=== PATIENT | female | born 1960 | race Caucasian/White ===

== ENCOUNTER 2018-10-28 08:55 | Observation (INO) | payer MEDICARE, OTHER ==
[~2018-10-28 08:55] MED LIST: DEXAMETHASONE SODIUM PHOSPHATE 10 MG/ML VIAL ONE; ENOXAPARIN SODIUM 40 MG/0.4 ML DISP.SYRIN SQ ONE; FAMOTIDINE 20 MG/2 ML VIAL ONE; FENTANYL CITRATE/PF 250 MCG/5 ML INJ. ONE; KETOROLAC TROMETHAMINE 30 MG/1ML VIAL ONE; LACTATED RINGERS 1,000 ML IV.SOLN IV ONE; LIDOCAINE HCL 2% PF 100MG/5ML VIAL IJ ONE; MIDAZOLAM HCL 2 MG/2 ML VIAL ONE; ONDANSETRON HCL/PF 4 MG/ 2ML VIAL ONE; PROPOFOL 200 MG/20 ML VIAL IV ONE; ROCURONIUM BROMIDE 10 MG/ML 5ML VIAL ONE; SCOPOLAMINE HYDROBROMIDE 1.5MG/72HR PATCH TD ONE; SEVOFLURANE 250 ML LIQUID IH ONE; ceFAZolin SODIUM 1 GM VIAL ONE
[2018-10-28] MEDS ORDERED: SCOPOLAMINE HYDROBROMIDE 1.5MG/72HR PATCH TD ONE (09:20)
[2018-10-28] MEDS ORDERED: PREGNANCY TEST KIT 1 EACH KIT MC ONE (10:04)
[2018-10-28] MEDS ORDERED: ONDANSETRON HCL/PF 4 MG/ 2ML VIAL IVP PRN (15:29)
[2018-10-28] MEDS ORDERED: OXYCODONE HCL 5 MG/5 ML SOLN UD CUP PO PRN (15:29)
[2018-10-28] MEDS ORDERED: MORPHINE SULFATE 4 MG/ML VIAL IVP PRN (15:29)
[2018-10-28] MEDS ORDERED: PROMETHAZINE HCL 25 MG in 0.9 % SODIUM CHLORIDE 50 ML IV PRN (15:29)
[2018-10-28] MEDS ORDERED: 0.9 % SODIUM CHLORIDE 1,000 ML IV ONE ×3 (15:46→21:49)
[2018-10-28] MEDS ORDERED: KETOROLAC TROMETHAMINE 30 MG/1ML VIAL ONE ×2 (15:46→21:49)
[2018-10-28] MEDS: KETOROLAC TROMETHAMINE 30 MG/1ML VIAL IVP PRN ×2 (15:57→21:59)
[2018-10-28] MEDS: 0.9 % SODIUM CHLORIDE 1,000 ML IV SCH (16:02)
[2018-10-28 16:33] VITALS: BMI 50.6
--- NOTE | 2018-10-28 18:11 | History and Physical Report ---
History of Present Illnes - History of Present Illness Reason for Visit: S/P Gastric Sleeve History of Present Illness: Patient is a 58-year-old female who has tried multiple diets and exercise programs with no success. She has always struggled with her weight. She has a h/o anorexia and bulemia. Patient and surgeon decided to proceed with gastric sleeve procedure. Procedure went well- patient will be admitted and monitored s/p surgical intervention. Patient has been on a liquid diet prior to surgery so she is a risk of dehydration s/p surgery. She will be admitted for IV hydration to help hydrate patient until she is able to tolerate a sufficient oral intake, will treat pain with IV medication until patient is able to tolerate oral meds, IV antiemetics to help reduce episodes of nausea and/or vomiting. Patient will be monitored closely with blood pressures ranging 170/75. Pain medication will be given and see if this is cause of HTN. - Past Medical History Cardiac: HTN, Other (EF 65% 07/20/18) Gastrointestinal: GERD, Other (Hx. of anorexia and bulemia) Heme/Onc: Other (fatty liver) Psych: Anxiety, Depression Musculoskeletal: Chronic low back pain, Osteoarthritis Rheumatologic: Other (Lupus) Endocrine: obesity Grav: 6 Para: 3 Ab: 3 - Past Surgical History Past Surgical History: Cholecystectomy, , Other (lumbar repair, Carpal tunnel release, right wrist, right foot), Tubal Ligation - Past Family History Mother Family History: Hypertension Father Family History: Hyperlipidemia - Past Social History Smoke: No Alcohol: Heavy (quit in September d/t fatty liver) Drugs: None Lives: With Family Domestic Violence: Negative - Health Maintenance Health Maintenance: Tetanus. denies: Influenza Vaccine Influenza Vaccine: Patient Refused Pneumonia Vaccine: No Resuscitation Status: Resusciation Status Resuscitation Status Full Code - Unable to Obtain History Unable to Obtain: No Review of Systems - Review of Systems Constitutional: Weakness. negative: Fever, Chills Eyes: negative: pain, eyelid inflammation ENT: Throat Pain (throat a little sore). negative: Ear Pain Respiratory: negative: Cough, Shortness of Breath Cardiovascular: negative: Chest Pain, Light Headedness Gastrointestinal: Nausea, Abdominal Pain (s/p gastric sleeve). negative: Vomiting Genitourinary: negative: Dysuria Musculoskeletal: negative: Back Pain Skin: Other (Incision site x 5). negative: Rash Neurological: negative: Weakness - Medications/Allergies Allergies/Adverse Reactions: Allergies Allergy/AdvReac Type Severity Reaction Status Date / Time Sulfa (Sulfonamide Allergy Verified 10/28/18 15:29 Antibiotics) Home Medications: Home Medications Benazepril HCl 20 mg PO DAILY 10/28/18 Cyclobenzaprine HCl 10 mg PO Q8H PRN 10/28/18 HYDROcodone /APAP 10/325 [[place] 10/325] 1 each PO Q8H PRN 10/28/18 Hydroxyzine Pamoate 25 mg PO DAILY 10/28/18 Meloxicam 15 mg PO DAILY 10/28/18 Metoprolol Succinate 100 mg PO DAILY 10/28/18 Pantoprazole Sodium 40 mg PO DAILY 10/28/18 Triamterene/Hydrochlorothiazid [Triamterene-Hctz 37.5-25 mg Tb] 1 each PO DAILY 10/28/18 Current Inpatient Medications: Current Inpatient Medications Cefazolin Sodium/Dextrose (Ancef 1 Gm/50 Ml-Dextrose) 1 gm IV Q8H [facility] Stop: 10/29/18 05:31 Enoxaparin Sodium (Lovenox) 40 mg SQ DAILY [facility] Stop: 11/12/18 08:59 Famotidine (Pepcid) 20 mg IVP BID [facility] Stop: 11/01/18 20:59 Sodium Chloride (Normal Saline) 1,000 mls @ 150 mls/hr IV Q8H [facility] Last Admin: 10/28/18 16:02 Dose: 150 mls/hr Promethazine HCl 25 mg/ Sodium (Chloride) 51 mls @ 200 mls/hr IV Q6 PRN PRN Reason: Nausea / Vomiting Stop: 11/01/18 15:28 Ketorolac Tromethamine (Toradol) 30 mg IVP Q6 PRN PRN Reason: For Mild Pain Stop: 11/01/18 15:28 Last Admin: 10/28/18 15:57 Dose: 30 mg Miscellaneous (Benazepril Hcl [Benazepril Hcl]) 20 mg PO DAILY [facility] Miscellaneous (Meloxicam [Meloxicam]) 15 mg PO DAILY [facility] Miscellaneous (Metoprolol Succinate [Metoprolol Succinate]) 100 mg PO DAILY [facility] Morphine Sulfate (Morphine Sulfate) 2 mg IVP Q2 PRN PRN Reason: MODERATE PAIN Stop: 10/29/18 15:28 Ondansetron HCl (Zofran) 4 mg IVP Q6H PRN PRN Reason: Nausea / Vomiting Stop: 11/01/18 15:28 Oxycodone HCl (Roxicodone) 5 mg PO Q4H PRN PRN Reason: PAIN Triamterene/HCTZ (Dyazide 37.5/25) 1 each PO DAILY [facility] Exam - Exam Vital Signs: Vital Signs (72 hours) 10/28/18 10/28/18 10/28/18 15:29 15:44 16:07 Temperature 97.4 F L 98.2 F Pulse Rate 65 Pulse Rate [ Apical] Pulse Rate [ 74 63 Right] Respiratory 20 20 Rate Blood Pressure 171/75 158/94 [Right Arm] O2 Sat by Pulse 96 96 96 Oximetry 10/28/18 18:00 Temperature 97.1 F L Pulse Rate Pulse Rate [ 68 Apical] Pulse Rate [ Right] Respiratory 20 Rate Blood Pressure 145/71 [Right Arm] O2 Sat by Pulse 92 Oximetry General: Alert, Oriented to Person, Oriented to Place, Oriented to Time, Cooperative, Mild distress, Morbidly Obese HEENT: Atraumatic, PERRLA, Mouth Mucous membr. moist/[place], Nose Mucous membr. moist/[place] Neck: Normal Range of Motion Carotids: No bruit Lungs: Clear to auscultation, Normal air movement, Speaks full Sentences Cardiovascular: Regular rate, Normal S1, Normal S2 Peripheral Edema: None Peripheral Pulses: 2+ Abdomen: Soft, Decreased Bowel Sounds Integumentary: Normal, [place], Warm, Dry, Other (Incision drsgs dry & intact x 5) Extremities: No edema, Normal pulses, No tenderness/swelling Neurological: Normal gait, Normal speech, Strength Equal Bilat, Sensation intact Psych/Mental Status: Mental status NL, Mood NL, Appropriate Affect, Intact Judgment Assessment/Plan - Assessment/Plan (1) Status post gastric surgery Status: Acute Current Visit: Yes Plan: Plan to admit for IV hydration, IV pain meds, and IV antiemetics. Lovenox to help prevent DVTs and SCD's, IS and frequent ambulation will be implemented. Start ice chips and advance diet as tolerated. (2) Morbid obesity due to excess calories Status: Acute Current Visit: Yes Plan: Patient is s/p gastric sleeve. We will assist patient with implementing gastric sleeve diet protocol starting with ice chips and clear liquids and advancing as tolerated. (3) Hypertension Status: Acute Current Visit: Yes Qualifiers: Hypertension type: essential hypertension Qualified Code(s): I10 - Essential (primary) hypertension Plan: Since patient blood pressure remains elevated we will continue with blood pressure medication and monitor blood pressure every 4 hours and as needed. We will keep her on telemetry as well and monitor cardiac rhythm and rate (4) GERD (gastroesophageal reflux disease) Status: Acute Current Visit: Yes Qualifiers: Esophagitis presence: without esophagitis Qualified Code(s): K21.9 - Gastro-esophageal reflux disease without esophagitis Plan: We will implement Pecid IV BID to help with GERD while patient is hospitalized to decrease acid reflux and until patient can tolerate oral medications (5) Anxiety and depression Status: Acute Current Visit: Yes Plan: Will plan to have nursing get patient up and walking out of the room- will offer activities such as tV, book, radio to occupy her (6) Chronic low back pain Status: Acute Current Visit: Yes Qualifiers: Back pain laterality: unspecified Sciatica laterality: sciatica laterality unspecified Plan: Will have patient up and ambulating- educate that laying in bed can exacerbate back pain- may offer K-Pad if needed VTE Assessment - RISK FACTOR SCORE VTE RISK FACTOR SCORES: AGE 40-60 YEARS, OBESITY, MAJOR SURGERY/ANESTHESIA TIME > 1 HOUR - RISK VTE HIGH RISK: SCORE OF 3-4 (RISK PROXIMAL DVT 4-8%) PROPHYLAXIS NEEDED (Lovenox daily, SCDs in bed, frequent ambulation)
[2018-10-28] MEDS ORDERED: CEFAZOLIN SODIUM/DEXTROSE,ISO 50 ML IV ONE (21:49)
[2018-10-28] MEDS ORDERED: PROMETHAZINE HCL 25 MG/ML VIAL ONE (21:49)
[2018-10-28] MEDS ORDERED: 0.9 % SODIUM CHLORIDE 50 ML IV ONE (21:50)
[2018-10-28] MEDS ORDERED: FAMOTIDINE 20 MG/2 ML VIAL ONE (21:51)
[2018-10-28] MEDS: FAMOTIDINE 20 MG/2 ML VIAL IVP SCH (21:59)
[2018-10-28] MEDS: CEFAZOLIN SODIUM/DEXTROSE,ISO 1 GM/50 ML PIGGYBACK IV SCH (22:00)
[2018-10-29] MEDS ORDERED: CEFAZOLIN SODIUM/DEXTROSE,ISO 50 ML IV ONE (04:14)
[2018-10-29] MEDS: CEFAZOLIN SODIUM/DEXTROSE,ISO 1 GM/50 ML PIGGYBACK IV SCH (04:33)
[2018-10-29] MEDS ORDERED: KETOROLAC TROMETHAMINE 30 MG/1ML VIAL ONE (06:42)
[2018-10-29] MEDS: KETOROLAC TROMETHAMINE 30 MG/1ML VIAL IVP PRN (06:42)
[2018-10-29 08:02] VITALS: BP 147/71
--- NOTE | 2018-10-29 08:27 | Discharge Summary ---
Discharge Summary - Discharge Sumary History of Present Illness: Patient is a 58-year-old female who has tried multiple diets and exercise programs with no success. She has always struggled with her weight. She has a h/o anorexia and bulemia. Patient and surgeon decided to proceed with gastric sleeve procedure. Procedure went well- patient will be admitted and monitored s/p surgical intervention. Patient has been on a liquid diet prior to surgery so she is a risk of dehydration s/p surgery. She will be admitted for IV hydration to help hydrate patient until she is able to tolerate a sufficient oral intake, will treat pain with IV medication until patient is able to tolerate oral meds, IV antiemetics to help reduce episodes of nausea and/or vomiting. Patient will be monitored closely with blood pressures ranging 170/75. Pain medication will be given and see if this is cause of HTN. Condition at Discharge: Stable Home Medications: Ambulatory Orders Medication Instructions Recorded Benazepril HCl 20 mg PO DAILY 10/28/18 Cyclobenzaprine HCl 10 mg PO Q8H PRN 10/28/18 HYDROcodone /APAP 10/325 [[place] 1 each PO Q8H PRN 10/28/18 10/325] Hydroxyzine Pamoate 25 mg PO DAILY 10/28/18 Meloxicam 15 mg PO DAILY 10/28/18 Metoprolol Succinate 100 mg PO DAILY 10/28/18 Pantoprazole Sodium 40 mg PO DAILY 10/28/18 Triamterene/Hydrochlorothiazid 1 each PO DAILY 10/28/18 [Triamterene-Hctz 37.5-25 mg Tb] Consultations this Visit: None Procedures this Visit: Other (S/P gastric sleeve) Allergies/Adverse Reactions: Allergies Allergy/AdvReac Type Severity Reaction Status Date / Time Sulfa (Sulfonamide Allergy Verified 10/28/18 15:29 Antibiotics) Discharge Summary: Patient is a 58-year-old female that underwent the gastric sleeve procedure and has done well. She has been very cooperative with her care by ambulating frequently, using her incentive spirometer, and wearing her SCDs while in bed. She has been compliant with her diet during hospitalization. She is having minimal discomfort at this time and minimal nausea- she has is passing gas and belching. She is aware of discharge instructions and what she can and cannot do post surgical- she is aware of the strict diet she must follow to decrease discomfort and have success after procedure. She has family support and daughter will be taking her home- medications written by surgeon given to patient. She feels ready to go home. Hospital Course: Patient received pain medications, antiemetics, and IVF and was transitioned to oral. She has been up ambulating and using incentive spirometer. - Final Diagnosis (1) Status post gastric surgery Problems: Incision without redness or drainage, positive bowel sounds, minimal discomfort, belching and flatus, no extremity pain or edema Right or Left: Right (2) Morbid obesity due to excess calories Problems: Patient is following strict gastric sleeve diet Right or Left: Right (3) Hypertension Problems: Will keep patient on blood pressure medications- BP running in the 140s. Right or Left: Right (4) GERD (gastroesophageal reflux disease) Problems: Stable on home meds Right or Left: Right (5) Anxiety and depression Problems: Stable on home meds Right or Left: Right (6) Chronic low back pain Problems: Stable on home meds Right or Left: Right
[2018-10-29] MEDS ORDERED: ENOXAPARIN SODIUM 40 MG/0.4 ML DISP.SYRIN SQ SCH (09:00)
[2018-10-29] MEDS ORDERED: TRIAMTERENE/HCTZ 37.5/25MG TAB PO SCH (09:00)
[2018-10-29] MEDS ORDERED: METOPROLOL SUCCINATE 100 MG PO SCH (09:00)
[2018-10-29] MEDS ORDERED: Non-Formulary 1 EACH (Meloxicam [Meloxicam] 15 MG) PO SCH (09:00)
[2018-10-29] MEDS ORDERED: BENAZEPRIL HCL 20 MG PO SCH (09:00)
[2018-10-29] MEDS ORDERED: TRIAMTERENE/HCTZ 37.5/25MG TAB PO ONE (10:03)
[2018-10-29] MEDS ORDERED: ENOXAPARIN SODIUM 40 MG/0.4 ML DISP.SYRIN SQ ONE (10:03)
[2018-10-29] MEDS ORDERED: METOPROLOL SUCCINATE 50 MG TAB.ER.24H PO ONE (10:04)
[2018-10-29] MEDS ORDERED: FAMOTIDINE 20 MG/2 ML VIAL ONE (10:04)
[2018-10-29] MEDS: FAMOTIDINE 20 MG/2 ML VIAL IVP SCH (10:28)
[2018-10-29] MEDS ORDERED: OXYCODONE HCL 5 MG/5 ML SOLN UD CUP PO ONE (11:48)
[2018-10-29] MEDS: 0.9 % SODIUM CHLORIDE 1,000 ML IV SCH ×2 (11:48→12:13)
--- NOTE | 2018-10-31 09:36 | Operative Note ---
PREOPERATIVE DIAGNOSIS: 1. Morbid obesity. 2. Gastroesophageal reflux disease. 3. Hypertension. POSTOPERATIVE DIAGNOSIS: 1. Morbid obesity. 2. Gastroesophageal reflux disease. 3. Hypertension. PROCEDURES PERFORMED: 1. Laparoscopic vertical sleeve gastrectomy. 2. Upper gastrointestinal endoscopy. SURGEON: Juan Larson M.D. INDICATIONS FOR PROCEDURE: Ms. Smith is a 58-year-old female who presented with features of morbid obesity. She was noted to have a weight of 290 pounds with a BMI of 51 with the above-listed comorbidities. The patient was advised laparoscopic vertical sleeve gastrectomy and possible hiatal hernia repair. The patient showed understanding and agreed to proceed. DESCRIPTION OF PROCEDURE: After explaining to the patient in detail and informed consent was obtained, the patient was identified in the preoperative holding area. The patient was transferred to the operating room and was placed in supine position. Sequential compressive devices were placed for DVT prophylaxis. Preoperative antibiotics were given. After induction of anesthesia, the abdomen was prepped and draped in a sterile fashion. Through a left upper quadrant 1-cm incision, and using Optiview technique, the peritoneal cavity was entered and pneumoperitoneum was created. Thereafter, under direct vision, another 5-mm trocar was placed in the left midabdomen and another 15-mm trocar was placed in the right midabdomen. Through a 1-cm incision in the right subcostal region, another 5-mm trocar was placed. Through a 1-cm incision in the epigastrium, a Silvina retractor was introduced and the left lobe of the liver was retracted. On initial inspection, the patient was noted to have no evidence of hiatal hernia. I took down the gastroepiploic vessels using a LigaSure. This was continued superiorly. The short gastric vessels were taken down. The gastrophrenic ligament was divided and the Angle of His was mobilized. The posterior attachments of the stomach on the pancreas were released. Distally, the gastroepiploic vessels were taken down up to about 4 cm proximal to the pylorus. At this point, a #38 [place] Bougie was introduced into the stomach and was placed along the lesser curve. The stomach was then divided in a vertical fashion with multiple Endo JUNITO [employer]idien Black Load Staplers. The first firing was directed outwards towards the greater curvature. Subsequent firings were directed towards the Angle of His to create a loose sleeve around the #38 [place] bougie. The bougie was then removed and an upper GI endoscopy was performed at this point. The scope was introduced into the esophagus and was gradually advanced into the stomach. The GE junction appeared normal. The sleeve size appeared normal. No evidence of any active bleeding was noted. The stomach was insufflated with air and irrigation of fluid along the staple line revealed no evidence of air leak. The stomach was then suctioned out and the scope was removed. Absolute hemostasis was ensured. Thorough saline irrigation was given. The Silvina retractor was removed. Approximately 10 mL of a lidocaine- Marcaine mix was instilled under the left hemidiaphragm. The sleeve gastrectomy specimen was removed. The abdomen was then deflated. The incisions were closed with 4-0 Monocryl. Dermabond was applied. Approximately 10 mL of a lidocaine- Marcaine mix was injected into all the incisions. The patient was awakened from anesthesia and was transferred to the recovery room in stable condition. ESTIMATED BLOOD LOSS: Approximately 25 mL. CONDITION OF THE PATIENT: Stable. FLUIDS GIVEN: Per Anesthesia note. SPECIMEN(S) SENT: Sleeve gastrectomy specimen. COMPLICATIONS: None. ANESTHESIA: General. Juan Larson M.D. JERICA/[place] @[id number] @[id number] [place]
== END 2018-10-29 12:30 | disposition home or self-care (01) ==
LOC: OPSURG 08:55 → INTOOBSV 15:25 → SOUTH 15:25
PROVIDERS: ADMIT Nurse Practitioner Family; ATTEND Nurse Practitioner Family
DX: E66.01 Morbid (severe) obesity due to excess calories (principal); Z68.43 Body mass index [BMI] 50.0-59.9, adult; I10 Essential (primary) hypertension; K21.9 Gastro-esophageal reflux disease without esophagitis
CPT/HCPCS: 43235; 43775; A9270; G0378; J0690; J1650; J1885; J2001; J2250; J2405; J2550; J2704; J7030; J7120; 99217; 99218; 99231; 99238; G0379